=== PATIENT | female | born 1995 | race Two or more races ===

== ENCOUNTER 2024-08-01 09:50 | Emergency (ER) | payer MEDICAID, OTHER ==
[~2024-08-01] VITALS: Ht 157.5 cm; Wt 100.0 kg
[2024-08-01 10:41] VITALS: BP 154/75; PULSE 95; RESP 16; TEMP 97.7; O2SAT 98
[2024-08-01] MEDS ORDERED: IBUP-1456 PO (10:54)
== END 2024-08-01 10:58 | disposition home or self-care (01) ==
LOC: ER 09:50
DX: S90.121A Contusion of right lesser toe(s) without damage to nail, initial encounter (principal); Z79.899 Other long term (current) drug therapy; W22.8XXA Striking against or struck by other objects, initial encounter; Y93.89 Activity, other specified; Y92.89 Other specified places as the place of occurrence of the external cause; Y99.8 Other external cause status
CPT/HCPCS: 73630

== ENCOUNTER 2025-02-01 13:35 | Emergency (ER) | payer MEDICAID ==
[~2025-02-01] VITALS: Ht 157.5 cm; Wt 86.3 kg
[~2025-02-01 13:35] MED LIST: IBUP-1456 PO
--- NOTE | 2025-02-01 14:24 | ED.PDOC ---
History of Present Illness HPI Comments 29-year-old female presents with a chief complaint of back pain x 2 weeks. Patient states that her pain is localized to her lumbar back region, nonradiating, and states that it is painful to walk or stand. Patient mentions that the pain is made worse with any slight body movement. Patient denies lifting anything heavy recently or exercising. Chief Complaint: Back Pain Time Seen by MD: 14:08 Primary Care Provider: [facility] Reviewed Notes: Medications, Allergies Allergies: Coded Allergies: Mushroom Extract Complex (Verified Allergy, Unknown, 02/01/25) Peanut-containing Drug Products (Verified Allergy, Unknown, 02/01/25) Penicillins (Verified Allergy, Unknown, 02/01/25) Home Meds Active Scripts Ibuprofen (Ibuprofen) 800 Mg Tab, 1 TAB PO TID, #30 TAB Prov:HECTOR BROWN 08/01/24 Information Source: Patient Mode of Arrival: Wheelchair Severity: Moderate Timing: Days Duration: Since onset Prehospital treatment: None Past Medical History PAST MEDICAL HISTORY: Denies Surgical History: Denies all surgeries CONSTRUCTION DRIVER History: No Pertinent CONSTRUCTION DRIVER History Family History Family History: Reviewed,noncontributory to illness Social History Smoker: Non-Smoker Alcohol: Denies ETOH Use Drugs: Denies Drug Use Lives In: Home Constitutional: denies: chills, diaphoresis, fatigue, fever, malaise, sweats, weakness, others EENTM: denies: blurred vision, double vision, ear bleeding, ear discharge, ear drainage, ear pain, ear ringing, eye pain, eye redness, hearing loss, mouth pain, mouth swelling, nasal discharge, nose bleeding, nose congestion, nose pain, photophobia, tearing, throat pain, throat swelling, voice changes, others Respiratory: denies: cough, hemoptysis, orthopnea, SOB at rest, shortness of breath, SOB with excertion, stridor, wheezing, others Cardiovascular: denies: chest pain, dizzy spells, diaphoresis, Dyspnea on exertion, edema, irregular heart beat, left arm pain, lightheadedness, palpitati ons, PND, syncope, others Gastrointestinal: denies: abdomen distended, abdominal pain, blood streaked bowels, constipated, diarrhea, dysphagia, difficulty swallowing, hematemesis, melena, nausea, poor appetite, poor fluid intake, rectal bleeding, rectal pain, vomiting, others Genitourinary: denies: abnormal vagina bleeding, burning, dyspareunia, dysuria, flank pain, frequency, hematuria, incontinence, pain, , vagina discharge, urgency, others Neurological: denies: dizziness, fainting, headache, left sided numbness, left sided weakness, numbness, paresthesia, pre-existing deficit, right sided numbness, right sided weakness, seizure, speech problems, tingling, tremors, weakness, others Musculoskeletal: reports: back pain; denies: gout, joint pain, joint swelling, muscle pain, muscle stiffness, neck pain, others Integumetry: denies: bruises, change in color, change in hair/nails, dryness, laceration, lesions, lumps, rash, wounds, others Allergic/Immunocompromised: denies: Difficulty Healing, Frequent Infections, Hives, Itching, others Hematologic/Lymphatic: denies: anemia, blood clots, easy bleeding, easy bruising, swollen glands, others Endocrine: denies: excessive hunger, excessive sweating, excessive thirst, excessive urination, flushing, intolerance to cold, intolerance to heat, unexplained weight gain, unexplained weight loss, others Psychiatric: denies: anxiety, bipolar disorder, depression, hopeless, panic dis order, schizophrenia, sleepless, suicidal, others All Other Systems: Reviewed and Negative Physical Exam General Appearance: No Apparent Distress, Normal HEENT: Normal ENT Inspection, Pharynx Normal, TMs Normal Neck: Full Range of Motion, Non-Tender, Normal, Normal Inspection Respiratory: Chest Non-Tender, Lungs Clear, No Accessory Muscle Use, No Respiratory Distress, Normal Breath Sounds Cardiovascular: No Edema, No JVD, No Murmur, No Gallop, Normal Peripheral Pulses, Regular Rate/Rhythm Breast Exam: Deferred Gastrointestinal: No Organomegaly, Non Tender, No Pulsatile Mass, Normal Bowel Sounds, Soft Genitalia: Deferred Pelvic: Deferred Rectal: Deferred Extremities: No calf tenderness, Normal capillary refill, Normal inspection, Normal range of motion, No pedal edema, Tender (LUMBAR SPINE TENDERNESS) Musculoskeletal : Apperance: Normal Neurologic: Alert, inspector clip on sunglasses II-XII nml as Tested, No Motor Deficits, Normal Affect, Normal Mood, No Sensory Deficits Cerebellar Function: Normal Reflexes: Normal Skin: Dry, Normal Color, Warm Lymphatic: No Adenopathy Was a procedure done? Was a procedure done?: No Differential Dx Considerations may include: back strain, fracture, sciatica, pathologic lesion, , uti, zoster X-Ray, Labs, Meds, VS Vital Signs Date Time Temp Pulse Resp B/P (MAP) Pulse Ox O2 Delivery O2 Flow Rate FiO2 02/01/25 14:55 Room Air* 0 21 02/01/25 14:34 98.1 82 18 123/71 (88) 97 98.1 02/01/25 14:34 82 18 97 Room Air 02/01/25 13:48 97.8 81 18 109/75 (86) 97 97.8 Lab Test 02/01/25 13:53 Range/Units Urine Color Light-yellow Yellow Urine Clarity Turbid H Clear Urine pH 6.5 5.0-9.0 Urine Specific [place] 1.012 1.001-1.035 Urine Protein Negative Negative Urine Ketones Negative Negative Urine Blood Negative Negative /uL Urine Nitrite Negative Negative Urine Bilirubin Negative Negative Urine Urobilinogen Normal Negative mg/dL Urine Leukocyte Esterase 3+ Negative /uL Urine RBC 5 0 - 4 /hpf Urine Microscopic WBC 21 H 0-5 /HPF Urine Squamous Epithelial Cells Mod <5 /hpf Urine Bacteria None seen None Seen /hpf Urine Mucus Few None Seen Urine Glucose Normal Normal mg/dL Urine Test Negative Negative Current Medications Medications (Trade) Dose Ordered Sig/Snow Route Start Time Stop Time Status Last Admin Ketorolac Tromethamine (Toradol Injection) 15 mg ONCE ONCE IM 02/01/25 14:15 02/01/25 14:16 DC 02/01/25 15:48 Time of 1ST Reevaluation: 14:38 Reevaluation 1ST: Unchanged Time of 2ND Reevaluation: 16:55 Reevaluation 2ND: Improved Patient Education/Counseling: Diagnosis, Treatment, Prognosis, Need For Follow Up Family Education/Counseling: Diagnosis, Treatment, Prognosis, Need For Follow Up Additional Information although pt does have an UTI, her back pain is inconsistent with pyelonephritis. she has pain on ROM. the xray does show signs of straightening of the normal curvature. i will start her on motrin, flexeril and keflex for the uti Departure 1 Departure Time of Disposition: 16:56 Impression: Primary Impression: Musculoskeletal pain Additional Impression: UTI (urinary tract infection) Qualified Codes: N30.00 - Acute cystitis without hematuria Disposition: 01 HOME / SELF CARE / HOMELESS Condition: Good e-Prescriptions Cephalexin Monohydrate (Cephalexin) 500 Mg Tab 1 TAB PO QID, #40 TAB Prov: JOSEY DANIELLE MD 02/01/25 Ibuprofen Micronized (MOTRIN TABLET) 600 Mg Tb 600 MG PO TID PRN, #40 TAB *Black box warning-NSAIDS can increase risk of [place] & hypertension, GI irritation, ulceration, bleed, perferation. Do not use post cardiac surgery. Use short duration/lowest effective dose. Prov: JOSEY DANIELLE MD 02/01/25 Cyclobenzaprine Hcl (Cyclobenzaprine Hcl) 10 Mg Tab 10 MG PO Q8HP PRN for 3 Days, #9 TAB Prov: JOSEY DANIELLE MD 02/01/25 Discharged With: Self Critical Care Note Critical Care Time?: No Stability Stability form required: No Heart Score Heart Score: Heart Score Response (Comments) Value History N/A 0 EKG N/A 0 Age N/A 0 Risk Factors N/A 0 Troponin N/A 0 Total 0 I personally scribed for JOSEY DANIELLE MD ([email or web address]) on 02/01/25 at 14:24. Electronically submitted by Rickie Boyle ([email or web address]). JOSEY DANIELLE MD Feb 01, 2025 14:24
[2025-02-01 14:34] VITALS: BP 123/71; PULSE 82; RESP 18; TEMP 98.1; O2SAT 97
[2025-02-01 15:32] LABS: Urine Bacteria None Seen /hpf (None Seen)
[2025-02-01 15:37] LABS: Urine Blood Negative /uL (Negative); Urine Clarity Turbid (Clear); Urine Color Light-Yellow (Yellow); Urine Mucus FEW (None Seen); Urine Protein, UAD Negative (Negative); Urine Specific Gravity 1.012 (1.001-1.035); Urine Squamous Epithelial Cell MOD /hpf (<5); Urine Urobilinogen Normal (Negative); Urine WBC 21 /HPF (0-5); Urine pH 6.5 (5.0-9.0)
[2025-02-01] MEDS: KETOROLAC TROMETH 30 MG/ML 1ML VIAL IM ONE (15:48)
--- NOTE | 2025-02-01 16:23 | DVH ---
CLINICAL INDICATION: pain TECHNIQUE: 3 radiographic views of the lumbar spine were obtained. Comparison: None FINDINGS/IMPRESSION: There is no evidence of acute fracture or dislocation. The visualized joint space is well maintained. Straightening of the normal lumbar lordotic curve may be secondary to patient positioning or muscle s pasm. There is no radiopaque foreign body. HS:Y
[2025-02-01] MEDS ORDERED: IBU600T PO (16:58)
[2025-02-01] MEDS ORDERED: CYCL-839 PO (16:58)
[2025-02-01] MEDS ORDERED: CEPH500T PO (16:58)
== END 2025-02-01 17:10 | disposition home or self-care (01) ==
LOC: ER 13:35
DX: M54.59 Other low back pain (principal); N39.0 Urinary tract infection, site not specified; Z88.0 Allergy status to penicillin; Z88.8 Allergy status to other drugs, medicaments and biological substances
CPT/HCPCS: 72100; 81001; 81025; 96372; 99284; J1885

== ENCOUNTER 2025-07-25 11:29 | Emergency (ER) | payer MEDICAID ==
[~2025-07-25] VITALS: Ht 157.5 cm; Wt 103.9 kg
[~2025-07-25 11:29] MED LIST changes: +CEPH500T PO; +CYCL-839 PO; +IBU600T PO
[2025-07-25 11:30] VITALS: BP 126/81; PULSE 98; RESP 18; TEMP 98; O2SAT 98
--- NOTE | 2025-07-25 12:15 | ED.PDOC ---
PARTNER MANAGER HPI Comments 29 y/o F presents with spouse for c/c nonradiating, pelvic pain. Patient is 10x weeks into her third (LMP 05/15/25; [id number]). She reports on being referred to the ED by her PARTNER MANAGER after most recent ultrasound, yesterday, showing no signs. Denial of abnormal vaginal bleeding, nausea, vomiting, diarrhea, constipation, fever, chills, or further associated symptoms. Chief Complaint: Time Seen by MD: 11:45 Reviewed Notes: Nurses Notes, Medications, Allergies Allergies: Coded Allergies: Mushroom Extract Complex (Verified Allergy, Unknown, 02/01/25) Peanut-containing Drug Products (Verified Allergy, Unknown, 02/01/25) Penicillins (Verified Allergy, Unknown, 02/01/25) Home Meds Active Scripts Cephalexin Monohydrate (Cephalexin) 500 Mg Tab, 1 TAB PO QID, #40 TAB Prov:JOSEY DANIELLE MD 02/01/25 Ibuprofen Micronized (MOTRIN TABLET) 600 Mg Tb, 600 MG PO TID PRN, #40 TAB *Black box warning-NSAIDS can increase risk of [place] & hypertension, GI irritation, ulceration, bleed, perferation. Do not use post cardiac surgery. Use short duration/lowest effective dose. Prov:JOSEY DANIELLE MD 02/01/25 Cyclobenzaprine Hcl (Cyclobenzaprine Hcl) 10 Mg Tab, 10 MG PO Q8HP PRN for 3 Days, #9 TAB Prov:JOSEY DANIELLE MD 02/01/25 Ibuprofen (Ibuprofen) 800 Mg Tab, 1 TAB PO TID, #30 TAB Prov:HECTRO BROWN 08/01/24 Information Source: Patient, Spouse Mode of Arrival: Wheelchair Timing: Hours Prehospital treatment: Other (She HPI) Severity: Moderate Vaginal Lesions: None Vaginal Mass: None Past Medical History PAST MEDICAL HISTORY: Denies Surgical History: Denies all surgeries BREAKFAST ATTENDANT History: No Pertinent BREAKFAST ATTENDANT History 3 Para 2 AB 0 LMP 05/15/25 Family History Family History: Reviewed,noncontributory to illness Social History Smoker: Non-Smoker Alcohol: Denies ETOH Use Drugs: Denies Drug Use Lives In: Home All Other Systems: Reviewed and Negative (Comprehensive review of systems are otherwise negative unless stated in HPI) Physical Exam General Appearance: Moderate Distress HEENT: Normal ENT Inspection, Pharynx Normal, TMs Normal Neck: Full Range of Motion, Non-Tender, Normal, Normal Inspection Respiratory: Chest Non-Tender, Lungs Clear, No Accessory Muscle Use, No Respiratory Distress, Normal Breath Sounds Cardiovascular: No Edema, No JVD, No Murmur, No Gallop, Normal Peripheral Pulses, Regular Rate/Rhythm Breast Exam: Deferred Gastrointestinal: No Organomegaly, Non Tender, No Pulsatile Mass, Normal Bowel Sounds, Soft Genitalia: Deferred Pelvic: Deferred Rectal: Deferred Extremities: No calf tenderness, Normal capillary refill, Normal inspection, No rmal range of motion, Non-tender, No pedal edema Musculoskeletal : Apperance: Normal Neurologic: Alert, outgoing inspector II-XII nml as Tested, No Motor Deficits, Normal Affect, Normal Mood, No Sensory Deficits Cerebellar Function: NOT DONE Reflexes: NOT DONE Skin: Dry, Normal Color, Warm Peripheral Pulses: 3+ Radial (R), 3+ Radial (L) Lymphatic: No Adenopathy Was a procedure done? Was a procedure done?: No Differential Diagnosis (BREAKFAST ATTENDANT) Vaginal Bleeding: - Complete, - Incomplete, - Inevitable, - Missed, - Threatened, Ectopic , Hormonal, PID, UTI X-Ray, Labs, Meds, VS Vital Signs Date Time Temp Pulse Resp B/P (MAP) Pulse Ox O2 Delivery O2 Flow Rate FiO2 07/25/25 11:30 98.0 98 18 126/81 98 98.0 Lab Test 07/25/25 13:11 Range/Units Beta HCG, Quantitative 85306.5 H 1.5-4.2 mIU/mL Patient alert. Comfortable. Came in because of . Vitals stable. Abdomen is soft nontender. No leg swelling. No shortness a breath. No chest pain. She was seen yesterday by her OBGYN which showed a cleaned ultrasound. She came for another ultrasound. Tried explained to her. Family very rude. Aggressive. Beta hCG appropriate. Continue to monitor. Time of 1ST Reevaluation: 12:15 Reevaluation 1ST: Unchanged Patient Education/Counseling: Diagnosis, Treatment, Need For Follow Up Family Education/Counseling: Diagnosis, Treatment, Need For Follow Up Departure 1 Departure Time of Disposition: 15:33 Impression: Primary Impression: Normal Qualified Codes: Z34.90 - Encounter for supervision of normal , unspecified, unspecified trimester Disposition: HOME / SELF CARE / HOMELESS Condition: Good Discharged With: Self Critical Care Note Critical Care Time?: No Stability Stability form required: No Heart Score Heart Score: Heart Score Response (Comments) Value History N/A 0 EKG N/A 0 Age N/A 0 Risk Factors N/A 0 Troponin N/A 0 Total 0 I personally scribed for REJI CONSTANTINO MD ([email or web address]) on 07/25/25 at 12:15. Electronically submitted by Antonio Bowen ([email or web address]). REJI CONSTANTINO MD Jul 25, 2025 12:15
== END 2025-07-25 15:36 | disposition left against medical advice (07) ==
LOC: ER 11:29
DX: O26.891 Other specified pregnancy related conditions, first trimester (principal); R10.2 Pelvic and perineal pain; Z3A.10 10 weeks gestation of pregnancy; Z79.899 Other long term (current) drug therapy; Z88.0 Allergy status to penicillin; Z91.010 Allergy to peanuts; Z91.018 Allergy to other foods
CPT/HCPCS: 36415; 84702